=== PATIENT | male | born 1940 | race Caucasian/White ===

== ENCOUNTER 2017-12-24 02:24 | Inpatient (IN) | payer OTHER, MEDICARE ==
[~2017-12-24] VITALS: Ht 175.3 cm; Wt 98.1 kg
--- NOTE | ~2017-12-24 | EKG ---
[address] [place] [place] [address] ELECTROCARDIOGRAM REPORT Name: JOSE MONZON Room #: 210-P [facility] IN .R.#: [id number] Admission: 12/24/17 Attend Phys: Soy Suárez DO Discharge: Date of : 40 Report #: [id number] THIS REPORT FOR: //name// [facility] ED Test Date: 2017-12-24 Test Time: 02:58:57 Pat Name: JOSE MONZON Department: Room: Gender: M National Sales Consultant: OLGA : 1940 Requested By: Sukumar Mahmood Order Number: [id number] MD: Edwin Melton Measurements Intervals [place] Rate: 138 P: TX: QRS: 30 QRSD: 108 T: -16 QT: 297 QTc: 450 Interpretive Statements Atrial fibrillation Inferior infarct, old No previous ECG available for comparison Electronically Signed On 12-24-2017 8:18:31 CDT by Edwin Melton [email or web address] <ELECTRONICALLY SIGNED> By: Edwin Melton MD, [facility] 12/24/17 0818 [id number] 0258 Edwin Melton MD, FACC /EPI
--- NOTE | ~2017-12-24 | HC ---
[facility] [place] [address] CONSULTATION Name: JOSE MONZON Room #: 210-P [facility] IN M.R.#: [id number] Admission: 12/24/17 Attend Phys: Soy Suárez DO Discharge: 12/27/17 Date of : 40 Report #: [id number] THIS REPORT FOR: //name// CC: Henrique Suárez DATE OF SERVICE: 12/26/2017 Nephrology Consultation DATE OF ADMISSION: 12/24/2017 REASON FOR CONSULTATION: Acute rise in serum creatinine. HISTORY OF PRESENT ILLNESS: This is a 77-year-old male who was admitted 2 days ago with worsening dyspnea. His symptoms actually started a couple of weeks ago when he was having a pleuritic right-sided pain. He was uncertain what this was. Originally, he associated with increased physical activity, doing his work around the yard and with several machines. Then, a few days ago, he began having increasing amounts of dyspnea. He had already had a CT scan done elsewhere, which showed he had a right pleural effusion. He ended up getting admitted to the hospital and has been undergoing care since that time. He has had a right thoracentesis performed with reported 1.6 L of drainage of pleural fluid. His pleural fluid studies appear to be transudative, but he did have quite a bit of blood with that in addition. We are asked to see him for an elevated creatinine level. In talking to the patient, he knows of no prior history of any renal disease. That includes no elevated creatinine, no history of nephrolithiasis, urinary tract infection, proteinuria, or hematuria. No history of prostate disorder or other obstructive problems. On presentation, his creatinine level was 1.4. By yesterday, it dropped to 1.1, but today it was up to 2.1. I cannot find that he has received any nephrotoxic exposures. When he first came in, his blood pressure was up and his presenting blood pressure in the Emergency Room was 178/153. Within a few hours, he was down to 118/64. He was treated with carvedilol, losartan, diltiazem. In looking at his vital signs, he had a couple of episodes after all of that of hypotension. About 4 hours after admission, he was running some pressures in the 90s systolic. It came back up after that, but by yesterday, he ran pressures listed in the 80s, 90s, and as low as 73/44 last evening. Finally, his blood pressure is up later today. He has received some IV fluids. His losartan has been held. Again, no nephrotoxic exposures except that he had a CT scan looking for pulmonary emboli earlier this morning. He did receive 85 mL of contrast with that. Unknown how much urine he has passed since that scan. The patient denies any nonsteroidals at home or any other apparent nephrotoxic exposures. Again, no obstructive symptoms. Kidneys have not been visualized. There is no urinalysis available on the chart at this time. [address] [address] CONSULTATION Name: JOSE MONZON Room #: 210-P [facility] IN M.R.#: [id number] Admission: 12/24/17 Attend Phys: Soy Suárez DO Discharge: 12/27/17 Date of : 40 Report #: [id number] PAST MEDICAL HISTORY: Coronary artery disease. He had a multivessel coronary artery bypass graft performed at [facility] years ago and is still followed there. He also has a history of chronic atrial fibrillation. He has had a pacemaker placed and this is a right subclavian pacemaker. That heart surgery was in 2005. He has had a prior TIA. He has hyperlipidemia. He has had some hypertension, has been on therapy for that. He has prior knee replacement. He has also had bilateral carpal tunnel surgery, left elbow surgery, rotator cuff repair, and laminectomy. MEDICATIONS: On admission include diltiazem 120 mg daily, carvedilol 6.25 mg b.i.d., warfarin 5 mg daily, valsartan 160 mg with hydrochlorothiazide 25 mg daily, omeprazole 20 mg daily, multivitamin, atorvastatin 20 mg daily, although he says he is intolerant of statins. ALLERGIES: PENICILLIN, which caused a rash. Also, INTOLERANCE TO THE STATINS. FAMILY HISTORY: Negative for renal disease. SOCIAL HISTORY: The patient is , accompanied by his at this time. He lives in [place], [place]. He is retired. He is a remote smoker. REVIEW OF SYSTEMS: Positive for the right-sided pleuritic chest pain and flank pain. Reports no hematuria. No difficulty voiding urine, although he was concerned he had a urinary tract infection because of the flank pain. No history of stones. He had increasing dyspnea, was unaware of palpitations, unaware of fevers, chills or sweats. No visual or hearing change recently. Does note some abdominal bloating. Appetite has been down with that. No nausea, no vomiting, no difficulty passing stool, no difficulty voiding urine. No peripheral edema. He had some arthralgias associated with statins previously. Those are less active now. PHYSICAL EXAMINATION: GENERAL: Pleasant 77-year-old male, awake, alert, oriented, sitting up at the edge of the bed, awaiting starting on dinner. VITAL SIGNS: Blood pressure 101/68, heart rate 60, temperature 97.8 degrees Fahrenheit, oxygen saturation 92%. HEENT: Shows pupils are equal and reactive. Sclerae nonicteric. Oral mucosa is moist. NECK: Veins are not distended. Neck is supple. CHEST: Shows dullness throughout most of the right lung field with no breath sounds. He is dull to percussion. Left side is fairly clear. HEART: Has an irregularly irregular rhythm. ABDOMEN: Has active bowel sounds. Abdomen is soft, generally nontender. I cannot palpate organomegaly or masses. EXTREMITIES: Show trace bilateral lower extremity edema, diminished left [facility] [address] [place] [address] CONSULTATION Name: JOSE MONZON Room #: 210-P [facility] IN [facility]#: [id number] Admission: 12/24/17 Attend Phys: Soy Suárez DO Discharge: 12/27/17 Date of : 40 Report #: [id number] forearm, left radial, and left brachial pulses, diminished pedal pulses. DATA: Labs from today, sodium 133, potassium 4.2, chloride 98, bicarbonate 27, BUN 46, creatinine 2.1, having come up from 1.1 yesterday, 1.4 on admission, calcium 8.5, phosphorus 2.6, total protein 6.6, albumin is 2.6 on admission. INR 1.1. White count 10.6, hemoglobin 12.6, hematocrit 37.6, platelets [id number], 79 neutrophils, 10 lymphs, 11 monos. Blood gas from admission: pH 7.61, pCO2 of 35.2, pO2 of 82.5. Lactate 1.11. I reviewed multiple different chest x-rays showing the right pleural effusion and right-sided atelectasis. It did not improve markedly after the 1.6 L thoracentesis. I looked at the CT scan. Unfortunately, there was not much view of the kidneys on that. ASSESSMENT: 1. Acute kidney injury. I have nothing to suggest that this is chronic kidney disease, as I only have 3 days of creatinine levels. The patient knows of no prior history of renal disease. I do not have any old labs. Nevertheless, his creatinine dropped from 1.4 to 1.1, but then ruby sharply. He was hypotensive throughout some of the last night, so he is under-perfused and with the concomitant use of the angiotensin receptor oriana, this changes glomerular filtration. Hence, his rise in creatinine. I am concerned, as he did get a dose of contrast with his CT scan for pulmonary embolism done earlier today. It looks like he has passed some urine since that time, but we need to closely monitor urine output. His losartan has been held. He is no longer on a diuretic. He is getting some IV fluid. We need to check urine studies, as none are done. We will check fractional excretion of sodium, as well as urine protein to creatinine ratio. We will also get followup labs in the morning. He needs a renal ultrasound to assess for renal size and anatomy. If this is all hypotension with angiotensin receptor oriana, and/or contrast nephrotoxicity, I expect it will improve. It may take a bit longer for the contrast nephrotoxicity to come around. At this point, I do not think he has substantial interim intrarenal problems, but if his urinalysis shows significant proteinuria or a nephritic looking urine, we want to pursue workup for the glomerular disease at that time also. Certainly, with his pleural effusion and lung symptoms, he could be having a pulmonary renal syndrome, but I think that is less likely. We will certainly not discount it at this time. 2. Right pleural effusion with atelectasis, hypoxemia. Workup underway. He has pulmonary nodules suggesting that he is going to get a video-assisted thoracoscopy. We want to see kidney function improving, but before he goes up for that procedure. 3. Coronary artery disease, previous coronary artery bypass graft. 4. Chronic atrial fibrillation, on medication, rate currently controlled. 5. Chronic anticoagulation. PLAN: [facility] [address] [place] [address] CONSULTATION Name: JOSE MONZON Room #: 210-P [facility] IN M.R.#: [id number] Admission: 12/24/17 Attend Phys: Soy Suárez DO Discharge: 12/27/17 Date of : 40 Report #: [id number] 1. Continue IV fluid. 2. Keep off of valsartan. 3. We need to maintain adequate blood pressure, at least in the 100 systolic range. 4. Check urinalysis. 5. Check fractional excretion of sodium. 6. Check urine protein creatinine ratio. 7. Renal ultrasound in the morning. 8. Repeat labs in the morning. Pending those results, we will make further decision of whether he is renally stable to go for his video-assisted thoracoscopy. We will follow along the care of this patient. <ELECTRONICALLY SIGNED> By: Star Martinez MD 12/31/17 1057 1739 0515 Christo Clinton MD /nt
--- NOTE | ~2017-12-24 | HC ---
[facility] [place] [address] CONSULTATION Name: NAJOSE Room #: 210-P ADM IN M.R.#: [id number] Admission: 12/24/17 Attend Phys: Soy Suárez DO Discharge: Date of : 40 Report #: [id number] THIS REPORT FOR: //name// CC: Henrique Suárez TYPE OF REPORT: Infectious diseases consultation. 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 Postoperatively, developed left chest surgical site infection at [facility] where he had exchange of the pacemaker to the right side. He feels that this was done within the last 6 months. He could not remember the specifics of the issue. He subsequently has developed increased shortness of breath. He is a previous smoker. Minimal cough. No nausea, vomiting or diarrhea. No fever, chills or sweats. He had an outpatient CT scan, which showed a significant right pleural effusion and nodule with mediastinal adenopathy. He is anticoagulated for his atrial fibrillation. Repeat CAT scan showed the same. He underwent thoracentesis. He has been seen by Cardiovascular Surgery with plan for a VAT later this week. The patient has had no increased chest discomfort around the previous pacemaker pocket or the new pacemaker pocket. He has had minimal cough. Overall, he states he feels better, just short of breath with exertion. His appetite has been good. No diarrhea. No dysuria or frequency. ALLERGIES: PENICILLIN with rash. Does not know if he has tolerated CEPHALOSPORINS. MEDICATIONS: As noted on his MAR, which were reviewed. Most notable for diltiazem, docusate sodium, carvedilol, Levaquin, amiodarone and atorvastatin. PAST MEDICAL HISTORY: Coronary artery disease, CABG in 2005, sick sinus syndrome, permanent pacemaker, subsequent pacemaker pocket infection, hypercoagulability, carotid artery disease, TIA, hypertension, hyperlipidemia, coronary artery bypass grafting and total knee arthroplasty. FAMILY HISTORY: Heart disease and cancer. SOCIAL HISTORY: Smoker of cigarettes. No significant alcohol intake. Lives at home with his spouse. [address] [address] CONSULTATION Name: NAJOSE Room #: 210-P [facility] IN M.R.#: [id number] Admission: 12/24/17 Attend Phys: Soy Suárez DO Discharge: Date of : 40 Report #: [id number] REVIEW OF SYSTEMS: No skin, lymph or complaints. PHYSICAL EXAMINATION: VITAL SIGNS: He is afebrile, hemodynamically stable. GENERAL: He is alert and cooperative and pleasant, in no acute distress. HEENT: Remarkable for edentulous, otherwise had several small erythematous patches to his soft palate. NECK: Supple. LUNGS: Decreased breath sounds in the right base posteriorly. HEART: Irregular without appreciable murmur. ABDOMEN: Soft and nontender. No hepatosplenomegaly or mass appreciated. He was mildly protuberant. EXTREMITIES: Unremarkable. Did have some varicosities. LABORATORY STUDIES: Right chest fluid analysis had a protein of 4.2, albumin at 2.6 and LDH 673, most consistent with exudative effusion. Await cytology. Sodium 134, potassium 4.1, bicarbonate 26 and creatinine 1.9. Liver function test normal. Albumin at 2.1. INR 1.1. Hemoglobin 12.6; WBC 10.6; platelet count 241,000; 78% neutrophils and 9.6% lymphs. pO2 82, pCO2 of 35, pH 7.46 and lactate 1.1. Cultures from the thoracentesis negative to date. Blood cultures negative today. RADIOLOGICAL DATA: CT scan of the chest from 12/26/2017, no evidence of pulmonary embolism, soft tissue within the right hilar paratracheal region, 3.8 x 1.7 cm concerning for malignancy. Enlarged right paratracheal node up to 2.1 cm, 7 mm right upper lobe subpleural nodule, [id number] right pleural effusion with atelectasis of the right middle and lower lobes and coronary artery disease with calcifications of the aortic valve. IMPRESSION: A 77-year old with right paratracheal disease, associated effusion concerning for malignancy. The patient has had no systemic symptoms of infection. He does have a history of permanent pacemaker pocket infection. I do not yet know the details of this event. Although the pleural fluid was exudative and it did not appear infected. RECOMMENDATIONS: Agree with proceeding with VAT to obtain cultures and path reports. We would await cytology on the pleural fluid first. With penicillin allergy, we would agree with current antibiotic program, Levaquin. The patient is edentulous. For completeness, we will evaluate with TB and fungal testing. Echocardiogram has shown no evidence of vegetation on his valves. <ELECTRONICALLY SIGNED> By: Sukumar Pedersen MD 12/27/17 1110 1757 0403 Sukumar Pedersen MD /nt
--- NOTE | ~2017-12-24 | 2DMMODE ---
[facility] [place] [address] 2 D/M-MODE ECHOCARDIOGRAM Name: JOSE MONZON Room #: 210-P [facility] IN ..#: [id number] Admission: 12/24/17 Attend Phys: Soy Suárez, Discharge: Date of : 40 Date of Service: 12/24/17 1308 Report #: [id number] THIS REPORT FOR: //name// APPROVED REPORT Study performed: 12/24/2017 11:00:14 EXAM: Comprehensive 2D, Doppler, and color-flow Echocardiogram Patient Location: Bedside Room #: 210 Status: routine BSA: 2.10 HR: 108 bpm BP: 104/52 mmHg Other Information Study Quality: Adequate Indications Dyspnea Pacemaker CAD Hypertension/HDD CABG 2D Dimensions RVDd: 41.79 mm LVEF(%): 62.66 (>50%) IVSd: 10.73 (7-11mm) LVOT Diam: 20.24 (18-24mm) LVDd: 44.51 mm PWd: 10.91 (7-11mm) Ascending Ao: 31.70 (22-36mm) LVDs: 29.52 (25-40mm) Aortic Root: 34.89 mm IVC: 22.00 mm León's LVEF: 62.66 % Volumes Left Atrial Volume (Systole) Single Plane 4CH: 54.35 mL Single Plane 2CH: 55.89 mL LA ESV Index: 29.00 mL/m2 Aortic Valve AoV Peak Adán.: 2.91 m/s AO Peak Gr.: 33.98 mmHg LVOT Max P.06 mmHg AO Mean Gr.: 19.24 mmHg LVOT Mean P.35 mmHg AO V2 Mean: 2.04 m/s LVOT Max V: 1.06 m/s AO V2 VTI: 45.94 cm LVOT Mean V: 0.69 m/s [facility] [place] [address] 2 D/M-MODE ECHOCARDIOGRAM Name: JOSE MONZON Room #: 210-P [facility] IN [facility]#: [id number] Admission: 12/24/17 Attend Phys: Soy Suárez, Discharge: Date of : 40 Date of Service: 12/24/17 1308 Report #: [id number] JAY (VTI): 1.11 cm2 LVOT V1 VTI: 15.86 cm JAY Vmax: 1.17 cm2 SV (LVOT): 50.99 mL Pulmonary Valve PV Peak Adán.: 1.19 m/s PV Peak Gr.: 5.84 mmHg Tricuspid Valve TR Peak Adán.: 3.21 m/s TR Peak Gr.: 41.33 mmHg PA Pressure: 51.00 mmHg Left Ventricle The left ventricle is normal size. There is hypokinesis in the inferior wall. There is normal left ventricular wall thickness. The left ventricular systolic function is normal. The left ventricular ejection fraction is within the normal range. LVEF is 55-60%. This study is not technically sufficient to allow evaluation of the LV diastolic function. Right Ventricle The right ventricle is normal size. The right ventricular systolic function is normal. Atria The left atrium size is normal. The right atrium size is normal. Aortic Valve The aortic valve is normal in structure. Aortic valve is calcified. Moderate aortic stenosis. Mitral Valve The mitral valve is normal in structure. Trace to mild mitral regurgitation. No evidence of mitral valve stenosis. Tricuspid Valve The tricuspid valve is normal in structure. There is mild tricuspid regurgitation. Estimated PAP 51 mmHg. There is moderate pulmonary hypertension. Pulmonic Valve The pulmonary valve is normal in structure. Trace pulmonic regurgitation. Great Vessels [facility] [address] [address] 2 D/M-MODE ECHOCARDIOGRAM Name: JOSE MONZON Room #: 210-P [facility] IN [facility]#: [id number] Admission: 12/24/17 Attend Phys: Soy Suárez, Discharge: Date of : 40 Date of Service: 12/24/17 1308 Report #: [id number] The aortic root is normal in size. IVC is dilated and collapses <50% with inspiration. Pericardium There is no pericardial effusion. <Conclusion> The left ventricle is normal size. LVEF is 55-60%. There is hypokinesis in the inferior wall. The aortic valve is normal in structure. Aortic valve is calcified. Moderate aortic stenosis. The mitral valve is normal in structure. Trace to mild mitral regurgitation. The tricuspid valve is normal in structure. There is mild tricuspid regurgitation. Estimated PAP 51 mmHg. There is moderate pulmonary hypertension. The pulmonary valve is normal in structure. Trace pulmonic regurgitation. <ELECTRONICALLY SIGNED> By: Roni Sandoval MD 12/24/17 1308 1308 1308 Roni Sandoval MD /INF
[~2017-12-24 02:24] MED LIST: CARVEDILOL12.5 MG PO; CIPRO250 M1 PO; CITRATE OF MAG296 ML PO; CO Q-10150 MG PO; COUMADIN 5 MG TA5 M1 PO; CRESTOR20 MG PO; DIOVAN HCT 1601 EAC1 PO; DIOVAN HCT 1601 EACH PO; FISH OIL 1,0001 EAC5 PO; HYDROCODON-ACE1 EAC7 PO; HYDROCODONE-AP1 EAC6 PO; LIPITOR 20 MG T20 M1 PO; MEDROLDOSEPACK PO; NORCO 5-325 TA1 EACH PO; OMEGA-3 + VITA1 EAC1 PO; OMEGA-3 KRILL1 EACH PO; OMEPRAZOLE20 M2 PO; OXYCODONE HCL 55 MG PO; PLAVIX 75 MG TA75 MG PO; XARELTO; ZOFRAN4 MG PO; [UNRECOGNIZED DRUG - OTHER] PO; [UNRECOGNIZED DRUG - OTHER] PO; [UNRECOGNIZED DRUG - OTHER] PO; [UNRECOGNIZED DRUG - OTHER] PO
[2017-12-24 02:30] VITALS: BP 178/153
[2017-12-24 03:24] LABS: HEMATOCRIT 39.1 % (42.0-52.0); HEMOGLOBIN 13.3 gm/dL (14.0-18.0); MCH 30.3 pg (26.0-34.0); MCHC 33.9 g/dL (28.0-37.0); MCV 89.2 fL (80.0-100.0); PLATELET COUNT 224 thou/uL (150-400); RBC 4.38 mil/uL (4.50-6.00); RDW 14.2 % (10.5-14.5)
[2017-12-24 03:33] LABS: BE(vivo) -0.5 mmol/L (-2 to +3); HCO3 24.7 mmol/L (22.0-26.0); PCO2 VENOUS 42.6 mmHg (41.0-51.0); PO2 VENOUS 21.9 mmHg (35.0-45.0)
[2017-12-24 03:33] LABS: ANION GAP 9 mmol/L (7-16); BUN 35 mg/dL (7-18); CALCIUM 8.6 mg/dL (8.5-10.1); CHLORIDE 98 mmol/L (98-107); CO2 26 mmol/L (21-32); CREATININE 1.4 mg/dL (0.7-1.3); GLUCOSE 104 mg/dL (74-106); POTASSIUM 3.7 mmol/L (3.5-5.1); SODIUM 133 mmol/L (136-145)
[2017-12-24 03:42] LABS: ALBUMIN 2.6 g/dL (3.4-5.0); MAGNESIUM 2.2 mg/dL (1.8-2.4); SGOT 32 U/L (15-37); SGPT 35 U/L (30-65); TOTAL PROTEIN 6.6 g/dL (6.4-8.2); TROPONIN-I < 0.04 ng/mL (<0.06)
[2017-12-24 03:55] LABS: ABSOLUTE NEUTROPHILS 6.8 thou/uL (1.4-8.2)
[2017-12-24 04:21] LABS: APTT 41.8 Seconds (24.5-32.8); INR 1.8; PROTIME 18.3 Seconds (9.3-11.4)
[2017-12-24 06:13] VITALS: BP 94/50
[2017-12-24 07:05] VITALS: BP 104/52
[2017-12-24] MEDS ORDERED: CARDIZEM CD120 MG PO (08:35)
[2017-12-24] MEDS ORDERED: COREG6.25 MG PO (08:35)
[2017-12-24 09:14] LABS: BE(vivo) 1.1 mmol/L (-2 to +3); HCO3 24.5 mmol/L (22.0-26.0); PCO2 35.2 mmHg (35.0-45.0); PO2 82.5 mmHg (80.0-100.0); pH 7.461 (7.360-7.450); sO2 96.7 % (92.0-98.0)
[2017-12-24 12:00] VITALS: BP 109/66
[2017-12-24 16:44] LABS: CLARITY TURBID; COLOR DARK RED; SOURCE RT CHEST; TOTAL VOLUME 62 mL
[2017-12-24 16:48] LABS: BF NUCLEATED CELLS 1549; BF RBC 741578
[2017-12-24 17:54] LABS: BF MACROPHAGE 8; BF NEUTROPHILS 62
[2017-12-24 20:10] VITALS: BP 111/68
[2017-12-24 23:33] VITALS: BP 123/69
[2017-12-25 04:07] LABS: HEMATOCRIT 38.3 % (42.0-52.0); HEMOGLOBIN 12.9 gm/dL (14.0-18.0); MCH 30.4 pg (26.0-34.0); MCHC 33.6 g/dL (28.0-37.0); MCV 90.4 fL (80.0-100.0); PLATELET COUNT 222 thou/uL (150-400); RBC 4.24 mil/uL (4.50-6.00); RDW 14.7 % (10.5-14.5); WBC 9.3 thou/uL (4.0-11.0)
[2017-12-25 04:20] LABS: ALBUMIN 2.1 g/dL (3.4-5.0); CALCIUM 8.4 mg/dL (8.5-10.1); CREATININE 1.1 mg/dL (0.7-1.3); INR 1.8; MAGNESIUM 2.1 mg/dL (1.8-2.4); POTASSIUM 4.1 mmol/L (3.5-5.1); PROTIME 18.4 Seconds (9.3-11.4); TOTAL BILIRUBIN 0.9 mg/dL (<0.1-1.0)
[2017-12-25 04:59] LABS: ATYPICAL LYMPHS 2 %; TSH 1.79 uIU/mL (0.358-3.740)
[2017-12-25 05:00] LABS: ANISOCYTOSIS SLIGHT
[2017-12-25 05:44] VITALS: BP 122/68
[2017-12-25 06:50] VITALS: BP 118/58
[2017-12-25 11:55] VITALS: BP 89/58
[2017-12-25 12:11] LABS: BODY FLUID ALBUMIN 2.6 g/dL (()); BODY FLUID AMYLASE 23 U/L (()); BODY FLUID GLUCOSE 69 mg/dL (()); BODY FLUID LDH 673 IU/L (()); BODY FLUID PROTEIN 4.2 g/dL (())
[2017-12-25 12:29] LABS: SOURCE RIGHT CHEST
[2017-12-25 16:15] VITALS: BP 99/43
[2017-12-25 20:19] VITALS: BP 73/44
[2017-12-25 23:50] VITALS: BP 81/51
[2017-12-26 04:42] LABS: CALCIUM 8.5 mg/dL (8.5-10.1); POTASSIUM 4.2 mmol/L (3.5-5.1)
[2017-12-26 04:43] LABS: ABSOLUTE NEUTROPHILS 9.6 thou/uL (1.4-8.2); BASOPHILS 0.2 % (0.0-2.0); EOSINOPHILS 0.2 % (0.0-3.0); LYMPHOCYTES 9.6 % (24.0-44.0); MCHC 33.3 g/dL (28.0-37.0); MONOCYTES 11.1 % (1.0-8.0); PLATELET COUNT 272 thou/uL (150-400); POLYS 78.9 % (36.0-66.0); RBC 3.56 mil/uL (4.50-6.00); RDW 14.2 % (10.5-14.5); WBC 12.1 thou/uL (4.0-11.0)
[2017-12-26 04:54] LABS: CREATININE 2.1 mg/dL (0.7-1.3)
[2017-12-26 05:04] LABS: HEMOGLOBIN 10.7 gm/dL (14.0-18.0)
[2017-12-26 05:13] VITALS: BP 98/57
[2017-12-26 06:56] VITALS: BP 93/53
[2017-12-26 15:02] LABS: HEMATOCRIT 37.6 % (42.0-52.0); HEMOGLOBIN 12.6 gm/dL (14.0-18.0); MCH 30.2 pg (26.0-34.0); MCHC 33.6 g/dL (28.0-37.0); MCV 90.1 fL (80.0-100.0); RBC 4.18 mil/uL (4.50-6.00); RDW 14.6 % (10.5-14.5); WBC 10.6 thou/uL (4.0-11.0)
[2017-12-26 15:28] LABS: APTT 30.3 Seconds (24.5-32.8); INR 1.1; PROTIME 11.7 Seconds (9.3-11.4)
[2017-12-26 15:45] VITALS: BP 101/68
[2017-12-26 17:47] LABS: CALCIUM 8.2 mg/dL (8.5-10.1); CREATININE 1.9 mg/dL (0.7-1.3); POTASSIUM 4.1 mmol/L (3.5-5.1)
[2017-12-26 18:51] LABS: URINE BILIRUBIN NEGATIVE (Negative); URINE BLOOD TRACE (Negative); URINE CLARITY CLEAR; URINE COLOR YELLOW; URINE GLUCOSE-RANDOM* NEGATIVE (Negative); URINE KETONES NEGATIVE (Negative); URINE LEUKOCYTES NEGATIVE (Negative); URINE NITRITE NEGATIVE (Negative); URINE PROTEIN (DIPSTICK) NEGATIVE (Negative); URINE SPECIFIC GRAVITY 1.015 (1.005-1.035); URINE UROBILINOGEN 0.2 E.U./dl (0.2-1.0)
[2017-12-26 18:57] LABS: PROT/CREAT RATIO 0.3; URINE CREATININE-RANDOM* 119.8 mg/dL; URINE PROTEIN-RANDOM* 33.2 mg/dL (<11.9); URINE SODIUM-RANDOM* < 5.0 mmol/L
[2017-12-26 19:30] VITALS: BP 117/73
[2017-12-26 23:30] VITALS: BP 124/77
[2017-12-27 03:35] VITALS: BP 119/73
[2017-12-27 05:08] LABS: ABSOLUTE NEUTROPHILS 7.1 thou/uL (1.4-8.2); BASOPHILS 0.1 % (0.0-2.0); EOSINOPHILS 0.3 % (0.0-3.0); HEMATOCRIT 34.9 % (42.0-52.0); HEMOGLOBIN 11.6 gm/dL (14.0-18.0); LYMPHOCYTES 8.8 % (24.0-44.0); MCH 30.2 pg (26.0-34.0); MCHC 33.4 g/dL (28.0-37.0); MCV 90.4 fL (80.0-100.0); MONOCYTES 10.7 % (1.0-8.0); PLATELET COUNT 244 thou/uL (150-400); POLYS 80.1 % (36.0-66.0); RBC 3.85 mil/uL (4.50-6.00); RDW 14.3 % (10.5-14.5); WBC 8.9 thou/uL (4.0-11.0)
[2017-12-27 05:24] LABS: CALCIUM 8.4 mg/dL (8.5-10.1); CREATININE 1.3 mg/dL (0.7-1.3); POTASSIUM 3.9 mmol/L (3.5-5.1)
[2017-12-27 08:00] VITALS: BP 116/72
[2017-12-27] MEDS ORDERED: PACERONE 200 M200 M1 PO (08:44)
[2017-12-27] MEDS ORDERED: ATORVASTATIN CA10 MG PO (08:45)
[2017-12-27] MEDS ORDERED: LEVAQUIN 500 M500 M1 PO (08:47)
[2017-12-27 12:00] VITALS: BP 119/60
[2017-12-27 16:00] VITALS: BP 118/64
[2017-12-28 18:10] LABS: HISTOPLASMA MYCELIAL-ID Negative (Negative)
== END 2017-12-27 19:00 | disposition short-term general hospital (02) | DRG 186 ==
LOC: ER 02:24 → EROBS 03:33 → 2N 03:33
PROVIDERS: Emergency Medicine; Family Medicine; Internal Medicine Nephrology; Internal Medicine Pulmonary Disease; Nurse Practitioner Acute Care; Registered Nurse; Specialist
PROC: 0W993ZZ Drainage of Right Pleural Cavity, Percutaneous Approach (ICD-10-PCS; principal; 2017-12-24)
DX: J90 Pleural effusion, not elsewhere classified (principal); E43 Unspecified severe protein-calorie malnutrition; N17.9 Acute kidney failure, unspecified; J98.11 Atelectasis; D68.59 Other primary thrombophilia; E87.1 Hypo-osmolality and hyponatremia; K21.9 Gastro-esophageal reflux disease without esophagitis; Z96.652 Presence of left artificial knee joint; N18.9 Chronic kidney disease, unspecified; I25.10 Atherosclerotic heart disease of native coronary artery without angina pectoris; I49.5 Sick sinus syndrome; J39.8 Other specified diseases of upper respiratory tract; R09.02 Hypoxemia; I48.2 Chronic atrial fibrillation; E78.00 Pure hypercholesterolemia, unspecified; I71.2 Thoracic aortic aneurysm, without rupture; I12.9 Hypertensive chronic kidney disease with stage 1 through stage 4 chronic kidney disease, or unspecified chronic kidney disease; I65.29 Occlusion and stenosis of unspecified carotid artery; R59.9 Enlarged lymph nodes, unspecified; R91.1 Solitary pulmonary nodule; I95.9 Hypotension, unspecified; Z95.1 Presence of aortocoronary bypass graft; I25.2 Old myocardial infarction; Z88.0 Allergy status to penicillin; Z95.0 Presence of cardiac pacemaker; Z86.73 Personal history of transient ischemic attack (TIA), and cerebral infarction without residual deficits; Z82.49 Family history of ischemic heart disease and other diseases of the circulatory system; Z79.01 Long term (current) use of anticoagulants; Z80.0 Family history of malignant neoplasm of digestive organs; Z87.891 Personal history of nicotine dependence; Z79.82 Long term (current) use of aspirin; Z79.899 Other long term (current) drug therapy; Z68.31 Body mass index [BMI] 31.0-31.9, adult
CPT/HCPCS: 10081